=== PATIENT | male | born 2000 | race African-American/Black ===

== ENCOUNTER 2018-07-25 20:15 | Emergency (ER) | payer SELFPAY ==
[~2018-07-25] VITALS: Ht 170.2 cm; Wt 78.0 kg
[2018-07-25 23:25] VITALS: BP 113/81
[2018-07-25] MEDS ORDERED: ONDANSETRON 4MG ODT PO STA (23:25)
[2018-07-25] MEDS ORDERED: ACETAMINOPHEN 325MG TABLET PO STA (23:25)
[2018-07-26 00:28] LABS: BASOPHILS % 0.1 % (0.0-2.0); EOSINOPHILS % 0.1 % (0.0-5.0); HEMATOCRIT. 42.4 % (42.0-52.0); HEMOGLOBIN. 14.3 g/dL (14.0-18.0); LYMPHOCYTES % 12.9 % (20.0-50.0); MEAN CORPUSCULAR HEMOGLOBIN 27.3 pg (28.0-32.0); MEAN CORPUSCULAR VOLUME 80.6 fL (80.0-94.0); MEAN PLATELET VOLUME 8.2 fl (7.4-10.4); MONOCYTES % 4.4 % (2.0-8.0); NEUTROPHILS % 82.5 % (40.0-76.0); PLATELET 293 x1000/uL (130-400); RED BLOOD CELL COUNT 5.26 mill/uL (4.7-6.1); RED CELL DISTRIBUTION WIDTH 14.1 % (11.6-14.6)
[2018-07-26 00:35] LABS: CHLORIDE 107 mEq/L (98-107)
[2018-07-26 00:41] LABS: ETHANOL BLOOD 107 mg/dL
[2018-07-26 00:41] LABS: CLARITY URINE CLEAR (CLEAR); COLOR URINE YELLOW (YELLOW); KETONES URINE NEGATIVE (NEGATIVE); LEUKOCYTE ESTERASE URINE 2+ (NEGATIVE); NITRITE URINE NEGATIVE (NEGATIVE); OCCULT BLOOD URINE NEGATIVE (NEGATIVE); PROTEIN URINE NEGATIVE (NEGATIVE); SPECIFIC GRAVITY URINE 1.011 (1.005-1.030)
[2018-07-26 00:56] LABS: *AMPHETAMINES SCREEN URINE NEGATIVE (NEGATIVE); *BARBITURATES SCREEN URINE NEGATIVE (NEGATIVE); *BENZODIAZEPINES SCREEN URINE NEGATIVE (NEGATIVE); *COCAINE SCREEN URINE NEGATIVE (NEGATIVE)
[2018-07-26 00:57] LABS: CANNABINOID URINE SCREEN PRESUMTIVE POSITIVE (NEGATIVE); METHADONE URINE SCREEN NEGATIVE (NEGATIVE); OPIATES URINE SCREEN NEGATIVE (NEGATIVE); PHENCYCLIDINE URINE SCREEN NEGATIVE (NEGATIVE)
== END 2018-07-26 00:24 | disposition left against medical advice (07) ==
LOC: ER 20:15
DX: N39.0 Urinary tract infection, site not specified (principal); F10.10 Alcohol abuse, uncomplicated; Y90.5 Blood alcohol level of 100-119 mg/100 ml
CPT/HCPCS: 36415; 80053; 80305; 81003; 83690; 85025; 87086; 99283; G0482; Q0162; A4315

== ENCOUNTER 2018-11-24 11:09 | Emergency (ER) | payer SELFPAY ==
[~2018-11-24] VITALS: Ht 177.8 cm; Wt 76.0 kg
[2018-11-24] MEDS ORDERED: HYDROCODONE/ACETAMINOPHEN 5/325MG TABLET PO STA (12:11)
[2018-11-24] MEDS ORDERED: AMOXICILLIN/POTASSIUM CLAVULANATE 875/125MG TAB PO ONE (12:15)
[2018-11-24] MEDS ORDERED: TETANUS, DIPHTHERIA, PERTUSSIS VAC/PF 0.5ML (>7YR OLD) IM ONE (12:15)
[2018-11-24 13:08] VITALS: BP 136/89
== END 2018-11-24 14:25 | disposition home or self-care (01) ==
LOC: ER 11:09
DX: S21.152A Open bite of left front wall of thorax without penetration into thoracic cavity, initial encounter (principal); S21.151A Open bite of right front wall of thorax without penetration into thoracic cavity, initial encounter; S61.451A Open bite of right hand, initial encounter; S01.85XA Open bite of other part of head, initial encounter; S60.221A Contusion of right hand, initial encounter; S09.8XXA Other specified injuries of head, initial encounter; J45.909 Unspecified asthma, uncomplicated; Y04.1XXA Assault by human bite, initial encounter; Y93.89 Activity, other specified; Y92.89 Other specified places as the place of occurrence of the external cause; Y99.8 Other external cause status
CPT/HCPCS: 71045; 73130; 90471; 90715; 99284

== ENCOUNTER 2023-04-03 20:24 | Emergency (ER) | payer SELFPAY ==
[~2023-04-03] VITALS: Ht 177.8 cm; Wt 61.0 kg
[2023-04-03 20:41] VITALS: O2SAT 100
[2023-04-03 21:10] VITALS: BP 118/79
[2023-04-03] MEDS ORDERED: IBUPROFEN 600MG TABLET PO ONE (21:15)
[2023-04-03] MEDS ORDERED: T3 PO (22:20)
[2023-04-03] MEDS ORDERED: IBUP-2029 MT (22:20)
[2023-04-03 23:10] VITALS: PULSE 80; RESP 14; TEMP 97.8
== END 2023-04-03 23:12 | disposition home or self-care (01) ==
LOC: ER 20:24
DX: S62.309A Unspecified fracture of unspecified metacarpal bone, initial encounter for closed fracture (principal); J45.909 Unspecified asthma, uncomplicated; F10.229 Alcohol dependence with intoxication, unspecified; X58.XXXA Exposure to other specified factors, initial encounter; Y93.89 Activity, other specified; Y92.89 Other specified places as the place of occurrence of the external cause; Y99.8 Other external cause status; Y90.0 Blood alcohol level of less than 20 mg/100 ml
CPT/HCPCS: 73130; 73600; 99284; Z7610

== ENCOUNTER 2025-06-17 12:49 | Emergency (ER) | payer SELFPAY ==
[~2025-06-17] VITALS: Ht 180.3 cm; Wt 64.5 kg
[~2025-06-17 12:49] MED LIST: IBUP-1455 MT; T3 PO
[2025-06-17 12:57] VITALS: O2SAT 100
[2025-06-17] MEDS: BENZONATATE 200MG CAPSULE PO ONE (15:09)
[2025-06-17] MEDS: IBUPROFEN 600MG TABLET PO ONE (15:09)
[2025-06-17] MEDS ORDERED: BENZ100C86 MT (16:09)
[2025-06-17] MEDS ORDERED: AMOX1TAB16 MT (16:09)
[2025-06-17] MEDS ORDERED: IBUP-1455 MT (16:09)
[2025-06-17 16:25] VITALS: BP 120/81; PULSE 64; RESP 15; TEMP 37.1; O2SAT 100
== END 2025-06-17 16:25 | disposition home or self-care (01) ==
LOC: ER 12:49
DX: J32.9 Chronic sinusitis, unspecified (principal); F10.20 Alcohol dependence, uncomplicated; J45.909 Unspecified asthma, uncomplicated
CPT/HCPCS: 71045; 99283